=== PATIENT | female | born 1970 | race Caucasian/White ===

== ENCOUNTER 2016-05-10 07:56 | Emergency (ER) | payer OTHER ==
[~2016-05-10] VITALS: Ht 165.1 cm; Wt 76.8 kg
[2016-05-10] VITALS (7 sets, daily range): BP systolic 112–131; BP diastolic 45–71; PULSE 58–64; RESP 14–17; O2SAT 96–99
[~2016-05-10 07:56] MED LIST: PREN1TAB73 PO; TUMS PO
[2016-05-10 10:00] LABS: BASOPHILS % (AUTO) 0.4 % (0-3); EOSINOPHILS % (AUTO) 1.2 % (0-5); MONOCYTES % (AUTO) 7.4 % (4-12); Mean Corpuscular Hemoglobin 30.7 pg (27.0-35.0); NEUTROPHILS % (AUTO) 40.4 % (40-74); Platelet Count 179 bil/L (150-400)
[2016-05-10 10:05] LABS: Magnesium 2.2 mg/dL (1.6-2.6)
--- NOTE | 2016-05-10 11:13 | ED.REPORT ---
HPI-Dizziness / Weakness Date of Service May 10, 2016 ED Provider: Scott Arana MD 46yoF presents with lightheadedness upon standing this morning. The patient awoke at a typical time and attemtped to stand from bed when she became acutely lightheaded and in a fairly controlled manner fell/sat back on bed. The patient stated that she felt hot and sweaty at the time and that the sensation of lightheaded hot and sweaty lasted for approximately one hour. The patient states that she has also had neck pain which began last night. She states that the neck pain is described as sharp and throbbing and is rated at approximately 4/10 and made worse with movement specifically turning left. The patient had a single glass of wine last night. Nursing Notes Stated Complaint: LIGHT HEADED Chief Complaint: General Complaint Nursing Notes Reviewed: Yes Allergies: Coded Allergies: No Known Allergies (Verified , 03/17/09) Scheduled Vit/Fe Fumarate/Fa-Expunged Drug, Do (-Expunged Drug, Do Not Renew!) 1 Tab Tablet 1 TAB PO DAILY Miscellaneous Medications Calcium Carbonate-Expunged Drug, Do Not Renew (Tums Chewable-Expunged Drug, Do Not Renew!) 500 Mg Tablet 500 MG PO General Time Seen by MD: 09:20 Chief Complaint Dizzy, Near-fainting, Lightheaded Hx Obtained From: Patient Arrived By: Walk-in Onset Occurred: 1 - 4 hours ago Context of Onset: Other (upon waking) Symptom Duration: 46 - 59 minutes Location: : Neck Quality: Sharp, Throbbing Radiation: Does not radiate Severity: Current: Pain level 4 out of 10 Severity: Maximum: Pain level 4 out of 10 Recent Healthcare: No recent doctor visit, No recent hospitalization Similar Sx Previous: No Risk Factors CVA Risk Stratification Risk factors reviewed Past Medical History Past Medical History denies Past Surgical History denies Family History noncontributory Smoking History Never Smoker Social History Alcohol Use: "Social" Drug Use: Denies drug use Ambulatory Status Independent Review of Systems Basic Review of Systems : No dysuria, No frequency Musculoskeletal: No extremity swelling, No extremity pain, Full range of motion , Joints NL Allergy / Immune: No allergy Constitutional: Denies: Chills, Fever Eyes: Denies: Blurred bilateral, Eye pain bilateral Ears / Nose / Throat: Denies: Ear drainage bilateral, Ear ringing bilateral, Hearing loss bilateral, Nasal congestion, Sore throat Respiratory: Denies: Dyspnea on exertion, Non-productive cough, Pleuritic pain Cardiovascular: Denies: Chest pain, Dyspnea on exertion, Palpitations GI: Denies: Abdominal pain, Constipation, Diarrhea, Dysphagia, Hematemesis, Hematochezia, Melena, Vomiting Hematologic: Denies Bleeding, Denies Bruising Endocrine: Denies: Weight gain, Weight loss Skin: Denies Bruising, Denies Itching, Denies Rash, Denies Unexplained bruises Neurologic: Reports: Lightheaded, Problem walking, Denies: Bladder dysfunction, Bowel dysfunction, Change LOC, Confusion, Headache, Slurred speech, Spinning sensation, Vision change Psychiatric: Denies: Anxiety, Change mental status Complete sys rev & neg: except as marked. Physical Exam Initial Vital Signs Vital Signs (First) Date Time Temp Pulse Resp B/P Pulse Ox O2 Delivery O2 Flow Rate FiO2 05/10/16 08:04 36.4 64 17 127/71 97 Room Air Initial VS: Reviewed ENT: Mucous membranes moist, Conjunctiva normal, No scleral icterus Neck: Supple, Non-tender, Full range of motion Abdomen / GI: Soft, Non-tender, No guarding, No rebound, No distention Back: No CVA tenderness Lymphatic: No lymphadenopathy Extremities: Vascular intact, Neuro intact, No swelling, No tenderness Skin: Warm, Dry, No cyanosis Psychiatric: Mood/affect normal, Behavior normal, Normal thought content General/Constitutional: Awake, Alert, No acute distress, Well appearing, Well developed Head / Eyes: Normocephalic, PERRL, EOMI, No nystagmus, No photophobia, Conjunctiva NL Respiratory / Chest: Breath sounds NL, Breath sounds = bilat, No respiratory distress, No rales, No rhonchi, No wheezing Cardiovascular: Heart rate NL, Regular rhythm, Heart sounds NL, No murmurs, Cap refill not delayed, Peripheral circulation NL Neurologic: Oriented X3, Speech NL, No motor deficits, No sensory deficits, CN II - XII intact, Reflexes equal bilat, Cerebellar NL, Gait NL Neck: Atraumatic, Supple, No meningismus, No swelling, Non-tender, No midline vertebral tend, No masses, No crepitus, No JVD, No carotid bruit, Thyroid NL Meningeal Signs / ROM: Positive: Rotation decreased L Soft Tissue Neck: Negative: Skin erythematous..., Swelling present... Abdomen: Soft, Non-tender, No guarding, No rebound Lower Extremity / Pelvis / MS: Inspection NL, No swelling, Non-tender, No erythema, No deformity, Neurologic intact, Vascular intact, No edema Skin: Color NL, Warm, Dry, Turgor NL Interpretation & Diagnostics Lab Results Interpretation Result Diagram: 05/10/16 0800 05/10/16 0800 Test 05/10/16 08:00 05/10/16 10:15 White Blood Count 5.6th/mm3 (3.8-10.1) Red Blood Count 4.60mil/mm3 (3.90-5.20) Hemoglobin 14.1g/dL (12.0-15.6) Hematocrit 40.5% (35.0-46.0) Mean Corpuscular Volume 88.0fL (81-100) Mean Corpuscular Hemoglobin 30.7pg (27.0-35.0) Mean Corpuscular Hemoglobin Concent 34.8% (32.0-37.0) Red Cell Distribution Width 12.1% (12.3-15.4) Platelet Count 179bil/L (150-400) Neutrophils (%) (Auto) 40.4% (40-74) Lymphocytes (%) (Auto) 50.4% (14-46) Monocytes (%) (Auto) 7.4% (4-12) Eosinophils (%) (Auto) 1.2% (0-5) Basophils (%) (Auto) 0.4% (0-3) Sodium Level 139mEq/L (134-144) Potassium Level 3.8mEq/L (3.5-5.2) Chloride Level 102mEq/L (97-108) Carbon Dioxide Level 26mmol/L (18-29) Blood Urea Nitrogen 15mg/dL (6-24) Creatinine 0.75mg/dL (0.57-1.00) Estimat Glomerular Filtration Rate 119mL/min (>59) Glucose Level 106mg/dL (60-99) Calcium Level 9.2mg/dL (8.5-10.1) Magnesium Level 2.2mg/dL (1.6-2.6) Total Bilirubin 0.5mg/dL (0.0-1.2) Aspartate Amino Transf (AST/SGOT) 25U/L (0-50) Alanine Aminotransferase (ALT/SGPT) 14U/L (0-32) Alkaline Phosphatase 26U/L (25-150) Troponin T < 0.010ug/L (0.0-0.011) Total Protein 7.4g/dL (6.4-8.4) Albumin 4.6g/dL (3.4-5.0) Hold Urine Received (Received) ECG Interpretation ECG Interpretation: Patient has a normal EKG preformed by EMS prior to arrival Repeat EKG in [facility] ED is also normal sinus rhythm Interpreted by: ED physician Normal ECG Interpretation: Normal sinus rhythm, No acute ischemic changes, Normal QRS, Normal axis, No change from prior ECGs Re-Eval/Medical Decision Med Decision/Clinical Course 46yoF withno pertinent past medical history presents with lightheadedness for 1 hour upon waking. Physical exam is unremarkable including full neurologic examination. BG was low 63 on admission and increased after juice administration. Labs showed no other abnormalities. Patient symptoms had resolved. Patient will be discharged with hypoglycemia and advised to drink plenty of water and eat regular meals and follow up with PCP in 1 week for evaluation. Counseled Regarding: Diagnosis, Lab results, Need for follow-up, When/why to return to ED Patient Discharge & Departure Impression: Primary Impression: Hypoglycemia Ruled Out: Orthostatic hypotension, Stroke, Electrolyte abnormality Disposition: Home Discharge Condition All VS Reviewed: Yes Condition: Stable Patient Instructions: Non-diabetic Hypoglycemia (ED) Additional Instructions: During you visit to [facility] Emergency Department we obtained blood work for infectious markers, blood cell counts, and electrolytes. We preformed a detailed physical exam and obtained a history of your recent health. At discharge all your lab values were within normal limits your vital signs were stable and safe for discharge. The most likely cause for your health complaints today are hypoglycemia. Included is a patient education packet on hypoglycemia. Please continue to eat regularly and drink plenty of water. If you have any recurrence of your original symptoms please be evaluated by a medical professional capable of checking your blood glucose. Your neck pain is likely just mild muscle strain and could be managed with ice packs applied 20 minutes at a time for 3 times a day, as well as heat applied for 20 minutes at a time 3 times a day. You may also take OTC pain medication like Tylenol, Ibuprofen and Aleve. Please take these medications as directed. You may also try light neck stretching. Do not hesitate to call emergency services or your primary care physician if you experience any of the following. - High unrelenting fevers. - Uncontrolled vomiting. - Severe hypotension. - Dizziness or loss of consciousness. - Chest pain or severe shortness of breath. - Unilateral weakness Please follow up with your primary care physician in 1 weeks time following your emergency department visit for medication checks and general well-being. Referrals: Yesica Romo (PCP) Attending Statement I personally examined this patient with Dr Jerry and agree with the above. Yesica Romo Nicholas K DO May 10, 2016 09:49 Scott Arana MD May 10, 2016 17:53
== END 2016-05-10 11:14 | disposition home or self-care (01) ==
LOC: EDBD 07:56 → SED 07:56
DX: E16.2 Hypoglycemia, unspecified (principal)